=== PATIENT | male | born 1985 | race Two or more races ===

== ENCOUNTER 2022-06-20 15:46 | Outpatient (CLI) | payer OTHER | END 2022-06-20 15:55 | disposition home or self-care (01) | LOC: RAD 15:46 | PROVIDERS: ATTEND General Practice | DX: M05.0 Felty's syndrome (principal) ==

== ENCOUNTER 2023-01-05 10:25 | Outpatient (CLI) | payer OTHER | END 2023-01-05 10:31 | disposition home or self-care (01) | LOC: RAD 10:25 | PROVIDERS: ATTEND Internal Medicine Hematology & Oncology | DX: J20.0 Acute bronchitis due to Mycoplasma pneumoniae (principal) ==